=== PATIENT | female | born 1995 | race Caucasian/White ===

== ENCOUNTER 2017-01-09 00:05 | Emergency (ER) | payer OTHER ==
[~2017-01-09] VITALS: Ht 167.6 cm; Wt 68.0 kg
[2017-01-09] MEDS ORDERED: RX-ALBUTEROL INHALER (PROAIR) 8 GM IH ONE (01:16)
[2017-01-09] MEDS ORDERED: RX-DOXYCYCLINE 100 MG (VIBRAMYCIN) TAB PPK#2 PO STA (01:16)
[2017-01-09] MEDS ORDERED: BENZ-13 PO (01:19)
[2017-01-09] MEDS ORDERED: DOXY100C42 PO (01:19)
[2017-01-09] MEDS ORDERED: RT-ALBUINH IH (01:19)
[2017-01-09] MEDS ORDERED: RX-ALBUTEROL INHALER (PROAIR) 8 GM IH STA (01:20)
--- NOTE | 2017-01-09 01:20 | ED Cough/URI ---
General Chief Complaint: Respiratory Problems Stated Complaint: SOA Nursing Triage Note: PT TO ED 9 W/ FRIEND FOR C/O SOB ONSET YESTERDAY, WORSE TODAY. REPORTS HAS NOT HAD INHALER EX BOYFRIEND THREW HER INHALER AWAY X3 WKS AGO. PT TEARFUL. NO DISTRESS NOTED Source: patient History of Present Illness Time seen by provider: 01:00 Initial Comments PT STATES SHE HAS "HAD A HARD TIME BREATHING AND IT HURTS TO BREATHE" SINCE YESTERDAY HAS HAD A NON-PRODUCTIVE COUGH NO FEVER NO WHEEZING PT HAS BEEN DX WITH ASTHMA AND HAS HAD AN INHALER IN THE PAST--CLAIMS HER NOW "EX" BOYFRIEND THREW HER INHALER AWAY 3 WEEKS AGO PCP: [facility] Allergies and Home Medications Allergies Coded Allergies: Penicillins (Verified Allergy, Unknown, 01/09/17) Home Medications Albuterol Sulfate 1 Puff Puff, 2 PUFF IH Q4H, #1 Prescribed by: YURY CARVALHO on 01/09/17118 Benzonatate 100 Mg Capsule, 100 MG PO TID, #30 Prescribed by: YURY CARVALHO on 01/09/17118 Doxycycline Monohydrate 100 Mg Capsule, 100 MG PO BID, #20 Prescribed by: YURY CARVALHO on 01/09/17118 Constitutional: no symptoms reported, No chills, No diaphoresis, No fever EENTM: no symptoms reported Respiratory: see HPI, cough, short of breath, No wheezing Cardiovascular: see HPI, chest pain Gastrointestinal: no symptoms reported Genitourinary: no symptoms reported : No LMP: Dec 18, 2016 (NORMAL, NO CONTROL) Musculoskeletal: no symptoms reported Skin: no symptoms reported Psychiatric/Neurological: No Symptoms Reported Hematologic/Lymphatic: No Symptoms Reported Immunological/Allergic: no symptoms reported Past Ajzpdtn-Lsgdmk-Tbfjzs Hx Patient Social History Alcohol Use: Occasionally Uses Recreational Drug Use: No Smoking Status: Current Everyday Smoker (1 PPD) Type Used: Cigarettes 2nd Hand Smoke Exposure: Yes Recent Foreign Travel: No Contact w/Someone Who Travel: No Recent Infectious Disease Expo: No Recent Hopitalizations: No Ebola Symptoms: Denies Symptoms Listed Physical Abuse: No Sexual Abuse: No Mistreated: No Fear: No Surgeries History of Surgeries: No Respiratory History of Respiratory Disorde: Yes Respiratory Disorders: Asthma Cardiovascular History of Cardiac Disorders: No Neurological History of Neurological Disord: No Reproductive System : No Female Reproductive Disorders: Denies Genitourinary History of Genitourinary Disor: No Gastrointestinal History of Gastrointestinal Di: No Musculoskeletal History of Musculoskeletal Dis: No Endocrine History of Endocrine Disorders: No HEENT History of HEENT Disorders: No Cancer History of Cancer: No Psychosocial History of Psychiatric Problem: Yes Behavioral Health Disorders: Anxiety Suicide Risk Score: 0 Integumentary History of Skin or Integumenta: No Physical Exam Vital Signs Vital Sign - Last 12Hours 01/09/17 01/09/17 00:20 01:26 Temp 97.8 Pulse 87 Resp 24 B/P (MAP) 131/83 Pulse Ox 99 O2 Delivery Room Air Capillary Refill : General Appearance: WD/WN, no apparent distress, other (PT LAYING ON ER CART WITH MALE S.O. AT BEDSIDE. PT LAUGHING, DOES NOT APPEAR TO BE IN ANY DISCOMFORT OR DISTRESS WHATSOEVER. ) HEENT: PERRL/EOMI, normal ENT inspection, TMs normal, pharynx normal Neck: non-tender, full range of motion, supple, normal inspection Respiratory: normal breath sounds, no respiratory distress, no accessory muscle use, other (RIGHT MID /PARASTERNAL UPPER CHEST TENDER TO PALPATION-- REPRODUCES PAIN) Cardiovascular: normal peripheral pulses, regular rate, rhythm, no edema, no JVD, no murmur Gastrointestinal: normal bowel sounds, non tender, soft Extremities: normal range of motion, non-tender, normal inspection, no pedal edema, no calf tenderness, normal capillary refill Neurologic/Psychiatric: meat carrier II-XII nml as tested, no motor/sensory deficits, alert, normal mood/affect, oriented x 3 Skin: normal color, warm/dry, other (MULTIPLE "HICKEYS" OF VARIOUS AGES ON NECK. ) Progress/Results/Core Measures Results/Orders My Orders Orders - YURY CARVALHO DO Rx-Doxycycline Tablet (Rx-Vibramycin Tab (01/09/17 01:16) Rx-Albuterol Inhaler (Rx-Proair) (01/09/17 01:20) Rx-Albuterol Inhaler (Rx-Proair) (01/09/17 01:16) Vital Signs/I&O Vital Sign - Last 12Hours 01/09/17 01/09/17 00:20 01:26 Temp 97.8 Pulse 87 88 Resp 24 18 B/P (MAP) 131/83 Pulse Ox 99 O2 Delivery Room Air Departure Impression Impression: Primary Impression: Bronchitis Additional Impression: REPORTED HISTORY OF ASTHMA Disposition: HOME, SELF-CARE Condition: Stable Departure-Patient Inst. Referrals: [facility] Patient Instructions: Acute Bronchitis, Adult (DC) Add. Discharge Instructions: LOTS OF CLEAR LIQUIDS NO SMOKING FOLLOW UP WITH [facility] IN 3-4 DAYS IF NO BETTER All discharge instructions reviewed with patient and/or family. Voiced understanding. Scripts Benzonatate (Tessalon Perle) 100 Mg Capsule 100 MG PO TID for Cough, #30 CAP Prov: YURY CARVALHO DO 01/09/17 Albuterol Sulfate (PROAIR HFA) 1 Puff Puff 2 PUFF IH Q4H for BREATHING, #1 UNIT Prov: YURY CARVALHO DO 01/09/17 Doxycycline Monohydrate (Doxycycline Monohydrate) 100 Mg Capsule 100 MG PO BID, #20 CAP Prov: YURY CARVALHO DO 01/09/17 YURY CARVALHO DO Jan 09, 2017 01:20
== END 2017-01-09 01:26 | disposition home or self-care (01) ==
LOC: ER 00:09
DX: J45.909 Unspecified asthma, uncomplicated (principal); F41.9 Anxiety disorder, unspecified; F17.210 Nicotine dependence, cigarettes, uncomplicated
CPT/HCPCS: 99282

== ENCOUNTER → 2017-06-20 | Outpatient (CLI) | payer MEDICAID, OTHER ==
[~2017-06-20] MED LIST: BENZ-13 PO; DOXY100C42 PO; RT-ALBUINH IH
--- NOTE | 2017-06-20 12:09 | Diagnostic Imaging Report ---
INDICATION: survey. TECHNIQUE: Multiple real-time grayscale images were obtained over the gravid uterus. COMPARISON: No prior examinations are available for comparison. FINDINGS: There is a single living intrauterine in a variable presentation. The biometry correlates with a gestational age of 20 weeks 4 days. There is a normal volume of amniotic fluid. Placenta is anterior. There is no previa. Heart rate is 130 beats per minute and regular. Cervical length is 4.1 cm. The anatomical survey is unremarkable. IMPRESSION: Single living intrauterine with sonographically estimated gestational age of 20 weeks 4 days and estimated date of confinement of November 02, 2017. Biometrical measurements are as follows: Biparietal 4.74 cm, age 20 weeks 3 days. Head circumference 17.74 cm, age 20 weeks 2 days. Abdominal circumference 15.11 cm, age 20 weeks 3 days. Femur length 3.45 cm, age 21 weeks 0 days. Sonographic estimate age: 20 weeks 4 days. Sonographic estimated date of delivery: 11/03/2017. Estimated Weight: 360 gm (+/- 53 gm). LMP percentile: 35%. heart rate: 130 beats per minute. number: 1 of 1. Dictated on workstation # [id number]
== END ==
LOC: RAD 10:02
PROVIDERS: ATTEND Obstetrics & Gynecology
DX: Z36.89 Encounter for other specified antenatal screening (principal); Z3A.20 20 weeks gestation of pregnancy
CPT/HCPCS: 76805

== ENCOUNTER 2017-11-01 21:32 | Inpatient (IN) | payer MEDICAID ==
[~2017-11-01] VITALS: Ht 167.6 cm; Wt 87.1 kg
[2017-11-01 22:00] VITALS: BP 143/83
[2017-11-01] MEDS ORDERED: D5 LR IV SOLUTION 1,000 ML IV ONE (22:02)
--- OUTSIDE RECORDS SUMMARY | 2017-11-01 22:13 | XMS REPORT ---
Author Author AURELIANO FERREIRA [facility] Address [address] [place] [address] Care Team Providers Care Appraisal Analyst Name Role Phone AURELIANO FERREIRA Unavailable PROBLEMS Type Condition ICD9-CM Code QMS25-XZ Code Onset Dates Condition Status SNOMED Code Problem Late menses N92.6 Active 68060021 ALLERGIES Substance Reaction Event Type Date Status Penicillin G Sodium Unknown Drug Allergy May, Active ENCOUNTERS Encounter Location Date Diagnosis [facility] [id number] [address] May, Acute nasopharyngitis J00 [facility] [id number] [address] May, Viral URI J06.9 [facility] [id number] [address] Dec, Sore throat J02.9 and Late menses N92.6 IMMUNIZATIONS No Known Immunizations SOCIAL HISTORY Never Assessed REASON FOR VISIT cold symptoms Pt is experiencing a sore throat, headache and body aches LYNN De PLAN OF CARE Activity Details Follow Up prn Reason: VITAL SIGNS MEDICATIONS Medication Instructions Dosage Frequency Start Date End Date Duration Status Benadryl Allergy 25 MG Orally every 8 hrs 1 tablet as needed 8h Not-Taking Tylenol 325 MG Orally every 6 hrs 2 tablets as needed 6h Not- Taking RESULTS No Results PROCEDURES No Known procedures INSTRUCTIONS MEDICATIONS ADMINISTERED No Known Medications
--- OUTSIDE RECORDS SUMMARY | 2017-11-01 22:13 | XMS REPORT ---
Author Author DEEPIKA JORGENSEN Organization [facility] Address [address] [place] [address] Care Team Providers Care Brazing Furnace Feeder Name Role Phone DEEPIKA JORGENSEN Unavailable PROBLEMS Type Condition ICD9-CM Code MEV34-HU Code Onset Dates Condition Status SNOMED Code Problem Late menses N92.6 Active 84017593 ALLERGIES Substance Reaction Event Type Date Status Penicillin G Sodium Unknown Drug Allergy May, Active ENCOUNTERS Encounter Location Date Diagnosis [facility] [id number], [place] [address] May, Acute nasopharyngitis J00 [facility] [id number] [address] May, Viral URI J06.9 [facility] [id number] [address] Dec, Sore throat J02.9 and Late menses N92.6 IMMUNIZATIONS No Known Immunizations SOCIAL HISTORY Never Assessed REASON FOR VISIT vomiting more than normal, cough and ore throat x2 months VALDEZ Bell PLAN OF CARE Activity Details Follow Up prn Reason: VITAL SIGNS Height 63 in 2017-05-26 Weight 148.4 lbs 2017-05-26 Temperature 97.5 degrees Fahrenheit 2017-05-26 Heart Rate 104 bpm 2017-05-26 Respiratory Rate 22 2017-05-26 BMI 26.29 kg/m2 2017-05-26 Blood pressure systolic 100 mmHg 2017-05-26 Blood pressure diastolic 70 mmHg 2017-05-26 MEDICATIONS Medication Instructions Dosage Frequency Start Date End Date Duration Status Tylenol 325 MG Orally every 6 hrs 2 tablets as needed 6h Active Benadryl Allergy 25 MG Orally every 8 hrs 1 tablet as needed 8h Active RESULTS No Results PROCEDURES No Known procedures INSTRUCTIONS MEDICATIONS ADMINISTERED No Known Medications
[2017-11-01] MEDS: D5 LR IV SOLUTION 1,000 ML IV SCH (22:15)
[2017-11-01] MEDS ORDERED: HYDROmorphone 1 MG/ML (DILAUDID) 1 ML SYRINGE ONE (22:28)
[2017-11-01] MEDS ORDERED: CLINDAMYCIN 900 MG/50 ML IVPB 50 ML IV ONE (22:54)
[2017-11-01 23:00] VITALS: BP 122/81
[2017-11-01] MEDS: CLINDAMYCIN 900 MG/50 ML IVPB 50 ML IV SCH (23:00)
[2017-11-01 23:53] LABS: BASOPHILS % (AUTO) 0 % (0-10); EOSINOPHILS % (AUTO) 0 % (0-10); HEMATOCRIT 39 % (35-52); LYMPHOCYTES # (AUTO) 1.8 X 10^3 (1.0-4.0); LYMPHOCYTES % (AUTO) 14 % (12-44); MEAN CORPUSCULAR HEMOGLOBIN 30 PG (25-34); MEAN CORPUSCULAR HGB CONC 36 G/DL (32-36); MEAN CORPUSCULAR VOLUME 84 FL (80-99); MEAN PLATELET VOLUME 11.5 FL (7.4-10.4); MONOCYTES # (AUTO) 1.2 X 10^3 (0.0-1.0); MONOCYTES % (AUTO) 10 % (0-12); NEUTROPHILS # (AUTO) 9.3 X 10^3 (1.8-7.8); NEUTROPHILS % (AUTO) 75 % (42-75); PLATELET COUNT 171 10^3/uL (130-400); RED BLOOD COUNT 4.65 10^6/uL (4.35-5.85); RED CELL DISTRIBUTION WIDTH 14.6 % (10.0-14.5); WHITE BLOOD COUNT 12.3 10^3/uL (4.3-11.0)
[2017-11-02] VITALS (52 sets, daily range): BP systolic 97–147; BP diastolic 53–100
[2017-11-02] MEDS ORDERED: HYDROmorphone 1 MG/ML (DILAUDID) 1 ML SYRINGE IV ONE (01:15)
[2017-11-02] MEDS ORDERED: CLINDAMYCIN 900 MG/50 ML IVPB 50 ML IV ONE (01:45)
[2017-11-02] MEDS ORDERED: SUFENTA 0.6MCG/ML BUPIVA 0.125 100 ML ONE (02:56)
[2017-11-02] MEDS ORDERED: LACTATED RINGERS 1,000 ML IV SCH (04:06)
[2017-11-02] MEDS ORDERED: diphenhydrAMINE 50 MG/ML INJ (BENADRYL) IV PRN (04:15)
[2017-11-02] MEDS ORDERED: METOCLOPRAMIDE INJ 10 MG/2 ML (REGLAN) IV PRN (04:15)
[2017-11-02] MEDS ORDERED: ONDANSETRON 4 MG/2 ML (SDV) Z0FRAN IV PRN (04:15)
[2017-11-02] MEDS ORDERED: NALOXONE 0.4 MG/ML 1 ML (NARCAN) VIAL IV PRN ×2 (04:15)
[2017-11-02] MEDS ORDERED: EPIDURAL (SUFENTA 0.6MCG/ML BUPIVA 0.125%) 100 ML BAG EPI SCH (04:15)
[2017-11-02] MEDS ORDERED: ACYC400T PO (05:34)
[2017-11-02] MEDS ORDERED: FAMO-119 PO (05:34)
[2017-11-02] MEDS ORDERED: CATHETER FLUSH 10 ML SYR IV SCH ×2 (06:00→14:00)
[2017-11-02] MEDS: CLINDAMYCIN 900 MG/50 ML IVPB 50 ML IV SCH (06:06)
[2017-11-02] MEDS: D5 LR IV SOLUTION 1,000 ML IV SCH (06:06)
[2017-11-02] MEDS ORDERED: OXYTOCIN/NORMAL SALINE 500 ML IV SCH ×2 (08:05→12:27)
[2017-11-02] MEDS ORDERED: OXYTOCIN/NORMAL SALINE 500 ML IV ONE (08:10)
--- NOTE | 2017-11-02 08:45 | History & Physical-OB ---
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 Allergies and Home Medications Allergies Coded Allergies: Penicillins (Verified Allergy, Unknown, 01/09/17) Home Medications Acyclovir 400 Mg Tablet, 400 MG PO TID, (Reported) Albuterol Sulfate 1 Puff Puff, 2 PUFF IH Q4H Prescribed by: YURY CARVALHO on 01/09/17 0119 Famotidine 20 Mg Tablet, 20 MG PO BID, (Reported) Patient Home Medication List Home Medication List Reviewed: Yes OB - History Hx of Present Care: Yes Ultrasounds: Normal mid trimester US Obstetrical Complications: None Medical Complications: None Obstetrical History Hx : 1 Patient Past Medical History HSV Social History/Family History Recent Infectious Disease Expo: No Sexually Transmitted Disease: Yes (HSV ) Alcohol Use: Denies Use Recreational Drug Use: No 2nd Hand Smoke Exposure: Yes OB - Admission Exam Physical Exam Vitals: Vital Signs 11/02/17 11/02/17 11/02/17 11/02/17 07:00 07:15 08:00 08:15 Temp 97.1 Pulse 105 Resp 16 B/P (MAP) 135/93 (107) Pulse Ox 100 O2 Delivery Room Air O2 Flow Rate 10.00 HEENT: NCAT Heart: Rhythm Normal Lungs: Clear Abdomen: Gravid Extremities: Normal Reflexes: Normal Cervical Dilatation: 2cm Effacement: 75% Station: -1 Membranes: Intact Heart Rate: 130's Accelerations: Accelerations Present Decelerations: No Decelerations Short Term Variability: Present Longterm Variability: Average (6-25) Contractions on Admission: < 5 Minutes Apart Intensity: Mild Labs Laboratory Tests Test 11/01/17 22:15 Range/Units White Blood Count 12.3 H 4.3-11.0 10^3/uL Red Blood Count 4.65 4.35-5.85 10^6/uL Hemoglobin 14.0 11.5-16.0 G/DL Hematocrit 39 35-52 % Mean Corpuscular Volume 84 80-99 FL Mean Corpuscular Hemoglobin 30 25-34 PG Mean Corpuscular Hemoglobin Concent 36 32-36 G/DL Red Cell Distribution Width 14.6 H 10.0-14.5 % Platelet Count 171 130-400 10^3/uL Mean Platelet Volume 11.5 H 7.4-10.4 FL Neutrophils (%) (Auto) 75 42-75 % Lymphocytes (%) (Auto) 14 12-44 % Monocytes (%) (Auto) 10 0-12 % Eosinophils (%) (Auto) 0 0-10 % Basophils (%) (Auto) 0 0-10 % Neutrophils # (Auto) 9.3 H 1.8-7.8 X 10^3 Lymphocytes # (Auto) 1.8 1.0-4.0 X 10^3 Monocytes # (Auto) 1.2 H 0.0-1.0 X 10^3 Eosinophils # (Auto) 0.0 0.0-0.3 10^3/uL Basophils # (Auto) 0.0 0.0-0.1 10^3/uL OB - Assessment/Plan/Diagnosis Assessment Assessment: active labor Admission Dx 22 yo @ 40 weeks Active labor GBS pos Admission Status: Inpatient Order (span 2 midnights) Reason for Inpatient Admission: Active labor Plan Plan: Expectant Management MICHEAL JIMÉNEZ DO Nov 02, 2017 8:45 am
[2017-11-02] MEDS ORDERED: LIDOCAINE/EPI 2% 1:200,00 (XYLOCAINE) 10 ML VIAL ONE (11:41)
[2017-11-02] MEDS ORDERED: BENZOCAINE/MENTHOL (DERMOPLAST) 56 ML CAN TP PRN (12:30)
[2017-11-02] MEDS ORDERED: TETANUS,DIPTH,PERTUSS P/F (BOOSTRIX) 0.5 ML VIAL IM ONE (12:30)
[2017-11-02] MEDS ORDERED: MEASLES,MUMPS,RUBELLA 1 EA INJ SQ ONE (12:30)
[2017-11-02] MEDS ORDERED: HYDROcodone/APAP 5 MG/325 MG (LORTAB) TAB PO PRN (12:30)
[2017-11-02] MEDS ORDERED: DIBUCAINE (NUPERCAINAL) 1% OINT 30 GM TOP PRN (12:30)
[2017-11-02] MEDS ORDERED: WITCH HAZEL(TUCKS) 40 EA JAR TOP PRN (12:30)
--- NOTE | 2017-11-02 12:31 | OB Labor & Delivery Record ---
L&D History Date of Service Date of Service: Nov 02, 2017 History Expected Date of Delivery: Nov 02, 2017 Gestational Age in Weeks: 40 Hx : 1 Hx Para: 0 Complications Events: Routine care Operative Indications (Cesarea: N/A-Vaginal Delivery Intrapartal Events: None L&D Stage1 Stage One Onset of Labor - Date: Nov 02, 2017 Monitors and Tracing Monitor Mode: External Heart Rate: 125 Monitor Decelerations: Variable Station: 0 Crisis Therapist Variability: Minimal (3-5) Short Term Variability: Present Presentation: Vertex Vital Signs VS - Last 72 Hours, by Label 11/01/17 11/01/17 11/02/17 11/02/17 22:00 23:00 00:00 01:00 Temp 98.0 Pulse 105 103 91 87 Resp 18 18 18 18 B/P (MAP) 143/83 (103) 122/81 (95) 125/83 (97) 130/82 (98) O2 Delivery Room Air Room Air Room Air Room Air 11/02/17 11/02/17 11/02/17 11/02/17 02:00 03:20 03:40 03:45 Temp 97.6 Pulse 94 93 98 116 Resp 18 18 18 18 B/P (MAP) 123/76 (92) 129/80 (96) 137/86 (103) 126/87 (100) Pulse Ox 100 100 100 O2 Delivery Room Air Room Air Room Air Room Air O2 Flow Rate 10.00 11/02/17 11/02/17 11/02/17 11/02/17 03:50 03:55 04:00 04:05 Pulse 113 100 106 106 Resp 18 18 18 18 B/P (MAP) 126/87 (100) 130/85 (100) 138/85 (102) 138/85 (102) Pulse Ox 100 100 100 100 O2 Delivery Room Air Room Air Room Air Room Air 11/02/17 11/02/17 11/02/17 11/02/17 04:10 04:15 04:20 04:25 Pulse 95 96 81 81 Resp 18 18 18 18 B/P (MAP) 123/75 (91) 120/64 (82) 120/57 (78) 109/58 (75) Pulse Ox 100 100 100 100 O2 Delivery Room Air Room Air Room Air Room Air 6/11/02/17 11/02/17 11/02/17 04:30 04:35 04:40 04:45 Temp 97.8 Pulse 78 100 97 95 Resp 18 18 18 18 B/P (MAP) 111/58 (75) 127/73 (91) 116/67 (83) 112/64 (80) Pulse Ox 100 100 100 100 O2 Delivery Room Air Room Air Room Air Room Air 11/02/17 11/02/17 11/02/17 11/02/17 05:10 05:25 05:45 06:00 Pulse 78 78 80 82 Resp 18 18 18 18 B/P (MAP) 99/53 (68) 97/56 (70) 109/59 (76) 114/57 (76) Pulse Ox 100 100 100 100 O2 Delivery Room Air Room Air Non Rebreather Non Rebreather O2 Flow Rate 10.00 10.00 11/02/17 11/02/17 11/02/17 11/02/17 06:15 06:30 06:45 07:00 Pulse 75 95 86 88 Resp 18 18 B/P (MAP) 113/55 (74) 122/83 (96) 115/58 (77) 119/60 (79) Pulse Ox 100 100 100 100 O2 Delivery Non Rebreather Non Rebreather Non Rebreather Non Rebreather O2 Flow Rate 10.00 10.00 10.00 10.00 11/02/17 11/02/17 11/02/17 11/02/17 07:15 07:30 07:45 08:00 Temp 97.1 Pulse 90 92 116 95 Resp 18 16 B/P (MAP) 126/70 (88) 135/74 (94) 124/83 (97) 127/80 (96) O2 Delivery Room Air Room Air Room Air Room Air 11/02/17 11/02/17 11/02/17 11/02/17 08:15 08:30 08:45 09:00 Pulse 105 96 104 95 B/P (MAP) 135/93 (107) 123/72 (89) 128/84 (99) 116/76 (89) O2 Delivery Room Air Room Air Room Air Room Air 11/02/17 11/02/17 11/02/17 11/02/17 09:15 09:30 09:45 10:00 Temp 97.0 Pulse 93 75 93 85 Resp 16 B/P (MAP) 113/70 (84) 109/65 (80) 118/72 (87) 124/57 (79) O2 Delivery Room Air Non Rebreather Non Rebreather Non Rebreather O2 Flow Rate 10.00 10.00 10.00 18 11/02/17 10:15 10:20 Temp 96.2 Pulse 94 B/P (MAP) 147/72 (97) O2 Delivery Non Rebreather O2 Flow Rate 10.00 Rupture of Membranes Spontaneous Ruture of Membrane: No Amniotic Membrane Rupture Time: 07 Amniotic Membrane Fluid Desc.: Clear Vaginal Bleeding Description: Normal Show Induction/Anesthesia Epidural Cath Placement - Time: 353 L&D Stage2 Stage Two Stage II Date: Nov 02, 2017 Monitors and Tracing Monitor Mode: External Heart Rate: 125 Monitor Accelerations: Uniform Monitor Decelerations: Variable Care Home Variability: Minimal (3-5) Short Term Variability: Present Position: Right Occiput Anterior Presentation: Vertex Cord Descript/Complications Cord Vessel Description: 3 Vessels Delivery Type Delivery Method: Spontaneous Vaginal Anterior Shoulder: Left Episiotomy/Perineal Laceration Laceraction(s)/Extensions: Yes Episiotomy Description: Right Mediolateral Degree (describe repair) RML repaired in usual fashion using 3-0 and 2-0 vicryl suture Condition of Infant Delivery 1 minute Comment: 8 5 minute Comment: 9 Notes Live female infant weight 6lbs 9oz Condition of Infant Condition of Infant: Living Exam: No Observed Abnormalities Resuscitation Resuscitation: N/A - Spontaneous Resp L&D Stage3 Stage Three Stage III Date: Nov 02, 2017 Pictocin Pitocin Administration mu/min: 4 Pitocin ml/hr: 4 Pitocin Administration Comment: 30 mu wide open at delivery of placenta Placenta Delivery Placenta Delivery: Spontaneous Delivery Summary Summary Estimated blood loss (mL): 350 Attending at delivery: Micheal Jiménez DO Condition of Delivery Examined: Cervix Examined, Uterus Explored Post Hemorrhage: No Condition of Mother stable Condition of Infant (s) stable MICHEAL JIMÉNEZ DO Nov 02, 2017 12:31 pm
--- NOTE | 2017-11-02 12:32 | Discharge Inst-Women's Service ---
Discharge Inst-Women's Serv Depart Medication/Instructions New, Converted or Re-Newed RX: RX on Chart Consults/Follow Up Additional Follow Up: Yes Orders/Referrals Dr. Jiménez in 6 weeks Activity Activity: Activity as Tolerated Driving Instructions: No Driving for 1 Week NO SMOKING: NO SMOKING Nothing Inside Vagina: No Douching, No [place], No Tampons Diet Discharge Diet: No Restrictions Symptoms to Report to : Bleeding Excessive, Pain Increased, Fever Over 101 Degrees F, Vaginal Bleeding Increase, Questions/Concerns For Any Problems or Questions: Contact Your Physician Skin/Wound Care Bathing Instructions: Shower (or sitz baths x 2 weeks) MICHEAL JIMÉNEZ DO Nov 02, 2017 12:32 pm
[2017-11-02] MEDS ORDERED: DOCU100C37 PO (12:34)
[2017-11-02] MEDS ORDERED: IBUP-844 PO (12:34)
[2017-11-02] MEDS ORDERED: ACHD5005 PO (12:34)
[2017-11-02] MEDS ORDERED: FERR325T18 PO (12:34)
[2017-11-02] MEDS ORDERED: DIBU30OI TOP (12:34)
[2017-11-02] MEDS: IBUPROFEN 600 MG (MOTRIN) TAB PO SCH ×2 (13:21→18:10)
[2017-11-02] MEDS ORDERED: LIDOCAINE/EPI 2% 1:100,00 (XYLOCAINE) 20 ML VIAL INJ ONE (13:30)
[2017-11-02] MEDS: DOCUSATE SODIUM 100 MG (COLACE) CAP PO SCH (21:29)
[2017-11-03] MEDS: IBUPROFEN 600 MG (MOTRIN) TAB PO SCH ×4 (00:08→18:54)
[2017-11-03 00:15] VITALS: BP 100/58
[2017-11-03 04:00] VITALS: BP 109/71
[2017-11-03] MEDS ORDERED: PRENATAL VITAMIN 1 EA TAB PO SCH (07:00)
--- NOTE | 2017-11-03 07:20 | Anesthesia-Regional Post-Op ---
Regional Patient Condition Mental Status: Alert, Oriented x3 Circulation: Same as Pre-Op Headache: Absent Sensation: Full Recovery Motor Block: Absent Post Op Complications Complications None Follow Up Care/Instructions Patient Instructions None needed. Anesthesia/Patient Condition Patient is doing well, no complaints, stable vital signs, no apparent adverse anesthesia problems. No complications reported per nursing. SHUN GUTIÉRREZ CRNA Nov 03, 2017 07:20
[2017-11-03 07:54] LABS: BASOPHILS % (AUTO) 0 % (0-10); EOSINOPHILS # (AUTO) 0.1 10^3/uL (0.0-0.3); EOSINOPHILS % (AUTO) 1 % (0-10); HEMATOCRIT 33 % (35-52); HEMOGLOBIN 11.3 G/DL (11.5-16.0); LYMPHOCYTES # (AUTO) 2.4 X 10^3 (1.0-4.0); LYMPHOCYTES % (AUTO) 22 % (12-44); MEAN CORPUSCULAR HEMOGLOBIN 30 PG (25-34); MEAN CORPUSCULAR HGB CONC 35 G/DL (32-36); MEAN CORPUSCULAR VOLUME 87 FL (80-99); MEAN PLATELET VOLUME 11.6 FL (7.4-10.4); MONOCYTES # (AUTO) 0.9 X 10^3 (0.0-1.0); MONOCYTES % (AUTO) 8 % (0-12); NEUTROPHILS # (AUTO) 7.9 X 10^3 (1.8-7.8); NEUTROPHILS % (AUTO) 70 % (42-75); PLATELET COUNT 142 10^3/uL (130-400); RED BLOOD COUNT 3.74 10^6/uL (4.35-5.85); RED CELL DISTRIBUTION WIDTH 14.9 % (10.0-14.5); WHITE BLOOD COUNT 11.2 10^3/uL (4.3-11.0)
[2017-11-03 08:00] VITALS: BP 110/71
[2017-11-03] MEDS ORDERED: FERROUS SULF 325 MG (IRON) TAB PO SCH (08:00)
[2017-11-03] MEDS: DOCUSATE SODIUM 100 MG (COLACE) CAP PO SCH (08:08)
--- NOTE | 2017-11-03 08:34 | Postpartum Progress Note ---
Note Note Day #1 Subjective: Patient is without complaints. Ambulating, voiding. Tolerating a regular diet without nausea or vomiting. Normal lochia. Pain is well controlled with oral pain medications. Objective: Vital Sign - Last 24 Hours 11/02/17 11/02/17 11/02/17 11/02/17 08:45 09:00 09:15 09:30 Temp 97.0 Pulse 104 95 93 75 Resp 16 B/P (MAP) 128/84 (99) 116/76 (89) 113/70 (84) 109/65 (80) O2 Delivery Room Air Room Air Room Air Non Rebreather O2 Flow Rate 10.00 11/02/17 11/02/17 11/02/17 11/02/17 09:45 10:00 10:15 10:20 Temp 96.2 Pulse 93 85 94 B/P (MAP) 118/72 (87) 124/57 (79) 147/72 (97) O2 Delivery Non Rebreather Non Rebreather Non Rebreather O2 Flow Rate 10.00 10.00 10.00 11/02/17 11/02/17 11/02/17 11/02/17 10:30 10:45 11:00 11:15 Pulse 96 100 88 94 Resp 18 B/P (MAP) 133/80 (97) 140/81 (100) 129/84 (99) 141/87 (105) O2 Delivery Non Rebreather Non Rebreather Non Rebreather Non Rebreather O2 Flow Rate 10.00 10.00 10.00 10.00 11/02/17 11/02/17 11/02/17 11/02/17 11:30 11:45 12:11 12:26 Temp 97.6 Pulse 120 90 102 Resp 22 16 B/P (MAP) 134/100 (111) 116/67 (83) 123/58 (79) O2 Delivery Non Rebreather Room Air Room Air Room Air O2 Flow Rate 10.00 11/02/17 11/02/17 11/02/17 11/02/17 12:41 12:56 13:11 13:26 Pulse 87 81 83 82 B/P (MAP) 121/57 (78) 122/55 (77) 121/59 (79) 112/56 (74) O2 Delivery Room Air Room Air Room Air Room Air 11/02/17 11/02/17 11/03/17 11/03/17 16:00 20:30 00:15 04:00 Temp 98.2 97.7 97.6 98.2 Pulse 82 82 81 79 Resp 16 18 17 18 B/P (MAP) 112/66 (81) 135/82 (99) 100/58 (72) 109/71 (84) Pulse Ox 95 95 96 97 O2 Delivery Room Air Room Air Room Air Room Air Intake and Output 11/02/17 11/02/17 11/03/17 15:00 23:00 07:00 Intake Total 1200 ml 1200 ml Balance 1200 ml 1200 ml Physical Exam: General - Alert and oriented, no apparent distress Abdomen - Soft, appropriately tender to palpation, non-distended, fundus firm at umbilicus Extremities - no edema, negative Dewey's bilaterally Assessment: PPD 1 NVD Plan: Routine care. Encourage breast feeding. Encourage ambulation. Ferrous sulfate supplementation. Plan for discharge today Vitals - Labs Vital Signs - I&O Vital Signs Date Time Temp Pulse Resp B/P (MAP) Pulse Ox O2 Delivery O2 Flow Rate FiO2 11/03/17 04:00 98.2 79 18 109/71 (84) 97 Room Air 11/03/17 00:15 97.6 81 17 100/58 (72) 96 Room Air 11/02/17 20:30 97.7 82 18 135/82 (99) 95 Room Air 11/02/17 16:00 98.2 82 16 112/66 (81) 95 Room Air 11/02/17 13:26 82 112/56 (74) Room Air 11/02/17 13:11 83 121/59 (79) Room Air 11/02/17 12:56 81 122/55 (77) Room Air 11/02/17 12:41 87 121/57 (78) Room Air 11/02/17 12:26 102 123/58 (79) Room Air 11/02/17 12:11 97.6 90 16 116/67 (83) Room Air 11/02/17 11:45 Room Air 11/02/17 11:30 120 22 134/100 (111) Non Rebreather 10.00 11/02/17 11:15 94 141/87 (105) Non Rebreather 10.00 11/02/17 11:00 88 129/84 (99) Non Rebreather 10.00 11/02/17 10:45 100 140/81 (100) Non Rebreather 10.00 11/02/17 10:30 96 18 133/80 (97) Non Rebreather 10.00 11/02/17 10:20 96.2 11/02/17 10:15 94 147/72 (97) Non Rebreather 10.00 11/02/17 10:00 85 124/57 (79) Non Rebreather 10.00 11/02/17 09:45 93 118/72 (87) Non Rebreather 10.00 11/02/17 09:30 75 109/65 (80) Non Rebreather 10.00 11/02/17 09:15 97.0 93 16 113/70 (84) Room Air 11/02/17 09:00 95 116/76 (89) Room Air 11/02/17 08:45 104 128/84 (99) Room Air I & O 11/03/17 07:00 Intake Total 2400 ml Balance 2400 ml Labs Laboratory Tests 11/03/17 07:00: White Blood Count 11.2H, Red Blood Count 3.74L, Hemoglobin 11.3L, Hematocrit 33L , Mean Corpuscular Volume 87, Mean Corpuscular Hemoglobin 30, Mean Corpuscular Hemoglobin Concent 35, Red Cell Distribution Width 14.9H, Platelet Count 142, Mean Platelet Volume 11.6H, Neutrophils (%) (Auto) 70, Lymphocytes (%) (Auto) 22 , Monocytes (%) (Auto) 8, Eosinophils (%) (Auto) 1, Basophils (%) (Auto) 0, Neutrophils # (Auto) 7.9H, Lymphocytes # (Auto) 2.4, Monocytes # (Auto) 0.9, Eosinophils # (Auto) 0.1, Basophils # (Auto) 0.0 MICHEAL JIMÉNEZ DO Nov 03, 2017 8:34 am
[2017-11-03 14:00] VITALS: BP 123/79
[2017-11-03] MEDS ORDERED: TETANUS,DIPTH,PERTUSS P/F (BOOSTRIX) 0.5 ML VIAL IM ONE (18:45)
[2017-11-03 19:00] VITALS: BP 123/79
== END 2017-11-03 19:00 | disposition home or self-care (01) | DRG 774 ==
LOC: WSo 21:32 → LDRP 21:32 → WSo 22:09 → LDRP 22:10
PROVIDERS: ADMIT Obstetrics & Gynecology; ATTEND Obstetrics & Gynecology
PROC: 10E0XZZ Delivery of Products of Conception, External Approach (ICD-10-PCS; principal; 2017-11-02)
PROC: 0W8NXZZ Division of Female Perineum, External Approach (ICD-10-PCS; 2017-11-02)
DX: O98.513 Other viral diseases complicating pregnancy, third trimester (principal); B00.9 Herpesviral infection, unspecified; O99.820 Streptococcus B carrier state complicating pregnancy; Z3A.40 40 weeks gestation of pregnancy; Z37.0 Single live birth; Z23 Encounter for immunization
CPT/HCPCS: 36415; 85025; 86850; 86900; 86901; 88307; 90715; 99212

== ENCOUNTER → 2018-01-16 | Outpatient (CLI) | payer MEDICAID ==
[~2018-01-16] MED LIST changes: +ACHD5005 PO; +ACYC400T PO; -BENZ-13 PO; +BENZ100C18 PO; +DIBU30OI TOP; +DOCU100C37 PO; +FAMO-119 PO; +FERR325T18 PO; +IBUP-844 PO
--- NOTE | 2018-01-16 12:00 | Diagnostic Imaging Report ---
PROCEDURE: US Non-ob pelvis comp/trans. TECHNIQUE: Multiple realtime grayscale images were obtained of the pelvis in various projections endovaginally. Transabdominal imaging was also performed. INDICATION: Sharp pelvic pain and bleeding. FINDINGS: The uterus measures 8.6 x 5.5 x 4.6 cm. No myometrial mass is seen. Endometrium is 7 mm in thickness. There is an IUD appropriately centered within the endometrial canal. The right ovary measures 3.0 x 2.0 x 2.4 cm and the left ovary measures 5.1 x 4.6 x 3.8 cm. There is a 4.4 x 4.2 cm simple cyst involving the left ovary. There is blood flow to both ovaries. IMPRESSION: 1. IUD appears to be in an appropriate location within the endometrial canal. 2. 4 cm simple left ovarian cyst. Dictated by: Dictated on workstation # [id number]
== END ==
LOC: RAD 10:52
PROVIDERS: ATTEND Obstetrics & Gynecology
DX: N83.202 Unspecified ovarian cyst, left side (principal); Z97.5 Presence of (intrauterine) contraceptive device
CPT/HCPCS: 76830; 76856

== ENCOUNTER 2018-09-19 19:36 | Emergency (ER) | payer MEDICAID ==
[~2018-09-19] VITALS: Ht 167.6 cm; Wt 61.7 kg
--- NOTE | 2018-09-19 20:06 | ED Abdominal Pain ---
General Chief Complaint: Abdominal/GI Problems Stated Complaint: STOMACH PAIN Nursing Triage Note: PT complaining of lower abd pain. Pt states she recently has a urinary infection. Sepsis Screen: No Definite Risk Source of Information: Patient Exam Limitations: No Limitations History of Present Illness Date Seen by Provider: September 19, 2018 Time Seen by Provider: 20:06 Allergies and Home Medications Allergies Coded Allergies: Penicillins (Verified Allergy, Unknown, 01/09/17) Home Medications Albuterol Sulfate 1 Puff Puff, 2 PUFF IH Q4H Prescribed by: YURY CARVALHO on 01/09/17 0119 Dibucaine 30 Gm Oint, 0 GM TOP UD PRN for PAIN- SEE INSTRUCTIONS Prescribed by: MICHEAL JIMÉNEZ on 11/02/17 1234 Docusate Sodium 100 Mg Capsule, 100 MG PO BID PRN for CONSTIPATION-1ST LINE Prescribed by: MICHEAL JIMÉNEZ on 11/02/17 1234 Famotidine 20 Mg Tablet, 20 MG PO BID, (Reported) Ferrous Sulfate 325 Mg Tablet, 325 MG PO DAILY Prescribed by: MICHEAL JIMÉNEZ on 11/02/17 1234 Hydrocodone Bit/Acetaminophen 1 Tab Tab, 1-2 TAB PO Q4H PRN for PAIN-MODERATE Prescribed by: MICHEAL JIMÉNEZ on 11/02/17 1234 Ibuprofen 600 Mg Tablet, 600 MG PO Q6H Prescribed by: MICHEAL JIMÉNEZ on 11/02/17 1234 Past Dtvjixq-Ejnxfh-Wkrxfz Hx Patient Social History Alcohol Use: Denies Use Recreational Drug Use: No Smoking Status: Current Everyday Smoker Type Used: Electronic/Vapor Former Smoker, Quit: Jun 08, 2017 2nd Hand Smoke Exposure: No Recent Foreign Travel: No Contact w/Someone Who Travel: No Recent Infectious Disease Expo: No Recent Hopitalizations: No Past Medical History Surgeries: No Respiratory: Yes Asthma Cardiac: No Neurological: No Female Reproductive Disorders: Denies Sexually Transmitted Disease: Yes (HSV ) Genitourinary: No Gastrointestinal: No Musculoskeletal: No Endocrine: No HEENT: No Cancer: No Psychosocial: Yes Anxiety Integumentary: No Family Medical History Seizure disorder 19 MOTHER G8 SISTER Physical Exam Vital Signs Vital Signs - First Documented 09/19/18 19:45 Temp 98.3 Pulse 92 Resp 16 B/P (MAP) 106/64 (78) Pulse Ox 99 O2 Delivery Room Air Capillary Refill : Less Than 3 Seconds Height/Weight/BMI Height: 5'6.00" Weight: 136lbs. 0.0oz. [id number]; 31.0 BMI Method:Actual Progress/Results/Core Measures Results/Orders Lab Results Laboratory Tests Test 09/19/18 19:52 Range/Units Urine Color YELLOW Urine Clarity CLEAR Urine pH 7 5-9 Urine Specific [place] 1.015 L 1.016-1.022 Urine Protein NEGATIVE NEGATIVE Urine Glucose (UA) NEGATIVE NEGATIVE Urine Ketones NEGATIVE NEGATIVE Urine Nitrite NEGATIVE NEGATIVE Urine Bilirubin NEGATIVE NEGATIVE Urine Urobilinogen NORMAL NORMAL MG/DL Urine Leukocyte Esterase 2+ H NEGATIVE Urine RBC (Auto) 1+ H NEGATIVE Urine RBC 0-2 /HPF Urine WBC 2-5 /HPF Urine Squamous Epithelial Cells 5-10 /HPF Urine Crystals NONE /LPF Urine Bacteria FEW H /HPF Urine Casts NONE /LPF Urine Mucus NEGATIVE /LPF Urine Culture Indicated NO Urine Test NEGATIVE NEGATIVE My Orders Orders - MARIA D MONTERROSO Ua Culture If Indicated (09/19/18 19:53) Hcg,Qualitative Urine (09/19/18 19:53) Vital Signs/I&O 09/19/18 19:45 Temp 98.3 Pulse 92 Resp 16 B/P (MAP) 106/64 (78) Pulse Ox 99 O2 Delivery Room Air Blood Pressure Mean: 78 Departure Impression Primary Impression: Urinary tract infection Disposition: 01 HOME, SELF-CARE Condition: Stable/Unchanged Departure-Patient Inst. Decision time for Depature: 20:39 Referrals: [facility] (PCP/Family) Primary Care Physician Patient Instructions: Urinary Tract Infection, Adult (DC) Add. Discharge Instructions: Be sure to complete the entire course of your antibiotics. Drink plenty of fluids to stay hydrated and help flush out your kidneys. You may use ibuprofen and Tylenol as directed by the bottle for pain relief. Follow-up with [facility] within 1 week for recheck. Return back to the emergency room for worsening symptoms or concerns as needed. All discharge instructions reviewed with patient and/or family. Voiced understanding. Scripts Nitrofurantoin Monohyd/M-Cryst (Macrobid 100 mg Capsule) 100 Mg Capsule 1 TAB PO BID for 5 Days, #10 CAP Prov: MARIA D MONTERROSO 09/19/18 MARIA D MONTERROSO September 19, 2018 20:06
[2018-09-19 20:08] LABS: BILIRUBIN,URINE NEGATIVE (NEGATIVE); CLARITY,URINE CLEAR; COLOR,URINE YELLOW; GLUCOSE, URINE (UA) NEGATIVE (NEGATIVE); KETONES,URINE NEGATIVE (NEGATIVE); LEUKOCYTE ESTERASE ,URINE 2+ (NEGATIVE); NITRITE,URINE NEGATIVE (NEGATIVE); PH,URINE 7 (5-9); PROTEIN,URINE NEGATIVE (NEGATIVE); UROBILINOGEN,URINE NORMAL (NORMAL)
[2018-09-19 20:16] LABS: BACTERIA,URINE FEW /HPF; RBC,URINE 0-2 /HPF
[2018-09-19] MEDS ORDERED: NITR-65 PO (20:40)
--- OUTSIDE RECORDS SUMMARY | 2018-09-19 20:42 | XMS REPORT | Continuity of Care Document ---
Author Organization Unknown Address Unknown Allergies There is no data. Medications There is no data. Problems There is no data. Procedures There is no data. Results There is no data. Encounters ACCT No. Visit Date/Time Discharge Status Pt. Type Provider Facility Loc./Unit Complaint [id number] 08/23/2018 12:55:00 08/23/2018 23:59:59 CLS Outpatient [facility]
[2018-09-19] MEDS ORDERED: NITROFURANTOIN 100 MG (MACROBID) CAPSULE PO ONE (20:45)
[2018-09-19 20:49] VITALS: BP 106/64
== END 2018-09-19 20:50 | disposition home or self-care (01) ==
LOC: EDUNIT# 19:36 → ER 19:37
DX: N39.0 Urinary tract infection, site not specified (principal); J45.909 Unspecified asthma, uncomplicated; F41.9 Anxiety disorder, unspecified; Z86.19 Personal history of other infectious and parasitic diseases; Z88.0 Allergy status to penicillin; Z87.891 Personal history of nicotine dependence
CPT/HCPCS: 81000; 84703; 99283